=== PATIENT | female | born 1985 | race African-American/Black ===

== ENCOUNTER 2020-09-30 08:47 | Inpatient (IN) | payer OTHER ==
[~2020-09-30] VITALS: Ht 165.1 cm; Wt 74.8 kg
[2020-09-30] VITALS (423 sets, daily range): BP systolic 141–144; BP diastolic 79–102; PULSE 78–121; TEMP 98.2–98.3; O2SAT 49–100
[2020-09-30 09:57] LABS: BASO % 0.1 % (0.0-2.0); GRAN # 10.4 (1.4-6.5); GRAN % 85.4 % (42.2-75.2); HEMATOCRIT 34.6 % (37.0-47.0); HEMOGLOBIN 10.9 g/dl (12.5-16.0); LYMPH # 1.3 (1.2-3.4); LYMPH % 10.7 % (20.0-51.0); MEAN CELL VOLUME 85 fl (80.0-100.0); MEAN CORPUSCULAR HEMOGLOBIN 27 pg (27.0-31.0); MEAN CORPUSCULAR HGB CONC 32 g/dl (33.0-37.0); MEAN PLATELET VOLUME 11.1 fl (7.4-10.4); MONO # 0.4 (0.1-0.6); MONO % 3.4 % (1.7-9.3); PLATELET COUNT 321 K/mm3 (130-400); RED BLOOD COUNT 4.09 M/mm3 (4.10-5.30)
[2020-09-30 10:12] LABS: ALBUMIN 3.6 gm/dL (3.5-5.0); BILIRUBIN,TOTAL 0.5 mg/dL (0.0-1.0); C-REACTIVE PROTEIN 7.5 mg/dL (0.0-0.9); CALCIUM 8.6 mg/dL (8.4-10.2); CREATININE, serum 0.73 (0.52-1.25); POTASSIUM 4.8 mmol/L (3.4-5.0)
[2020-09-30 12:11] LABS: ARTERIAL BLD GAS O2 SATURATION 94.4 % (92-100); ARTERIAL BLD GAS TCO2 CT 26.4; ARTERIAL BLOOD GAS BASE EXCESS 1.6 (-2-2); ARTERIAL BLOOD GAS HCO3 25.2 meq/L (22-26); ARTERIAL BLOOD GAS PCO2 35.9 mmHg (35-45); ARTERIAL BLOOD GAS PO2 75.1 mmHg (80-100); ARTERIAL BLOOD GAS pH 7.47 (7.35-7.45)
[2020-09-30 12:56] LABS: MAGNESIUM 2.4 mg/dL (1.6-2.3)
[2020-09-30 13:12] LABS: TROPONIN-I 0.059 ng/mL (0.000-0.035)
[2020-09-30 13:18] LABS: INR 1.3 (0.8-3.0)
[2020-09-30 15:34] LABS: COLLECTION METHOD CLEAN CATCH
[2020-09-30 15:55] LABS: MUCOUS Present /lpf; PH 6 (5-8); SQUAMOUS EPITHELIAL None Seen /hpf; URINE APPEARANCE Hazy; URINE BACTERIA Occasional /hpf; URINE BILIRUBIN Negative (NEGATIVE); URINE BLOOD 2+ (NEGATIVE); URINE COLOR Yellow; URINE GLUCOSE Negative (NEGATIVE); URINE KETONE Negative (NEGATIVE); URINE LEUKOCYTE ESTERASE 2+ (NEGATIVE); URINE NITRATE Negative (NEGATIVE); URINE PROTEIN(semi-quant) 2+ (NEGATIVE); URINE RBC 20-50 /hpf
[2020-09-30 17:05] LABS: ARTERIAL BLD GAS O2 SATURATION 96.9 % (92-100); ARTERIAL BLD GAS TCO2 CT 26.2; ARTERIAL BLOOD GAS BASE EXCESS 0.7 (-2-2); ARTERIAL BLOOD GAS PCO2 38.6 mmHg (35-45); ARTERIAL BLOOD GAS PO2 93.3 mmHg (80-100); ARTERIAL BLOOD GAS pH 7.43 (7.35-7.45)
--- NOTE | 2020-09-30 20:00 | NUR ---
PATIENT HAS HAD MASK OFF FORREASONABLE AMOUNT OF TIME, HAVING JELLO AND H20 CAUSE OF HUNGER SATS MAINTAIN AT 90 TO 91%,
[2020-10-01] VITALS (872 sets, daily range): BP systolic 130–174; BP diastolic 90–96; PULSE 68–112; TEMP 97.7–99.1; O2SAT 46–100
--- NOTE | 2020-10-01 | NUR ---
PATIENT HAS BEEN RESTING, MASK OFF FOR WATER AND SOME MORE JELLO, SATS MAINTAINED, WARM BLANKET PROVIDED, PATIENT BACK TO RESTING
[2020-10-01 05:16] LABS: MEAN CELL VOLUME 82 fl (80.0-100.0); MEAN CORPUSCULAR HGB CONC 32 g/dl (33.0-37.0); RED BLOOD COUNT 6.51 M/mm3 (4.10-5.30); REDCELL DISTRIBUTION WIDTH-CV 14.7 % (11.5-14.5)
[2020-10-01 05:20] LABS: HEMATOCRIT 53.3 % (37.0-47.0); HEMOGLOBIN 17.1 g/dl (12.5-16.0); MEAN CORPUSCULAR HEMOGLOBIN 26 pg (27.0-31.0); PLATELET COUNT 114 K/mm3 (130-400)
[2020-10-01 05:24] LABS: ALBUMIN 2.9 gm/dL (3.5-5.0); BILIRUBIN,TOTAL 0.3 mg/dL (0.0-1.0); CALCIUM 7.6 mg/dL (8.4-10.2); CREATININE, serum 0.55 (0.52-1.25); POTASSIUM 4.3 mmol/L (3.4-5.0); TOTAL PROTEIN 7.3 gm/dL (6.4-8.2)
[2020-10-01 05:42] LABS: GRAN # 2.9 (1.4-6.5); GRAN % 86.4 % (42.2-75.2); LYMPH # 0.3 (1.2-3.4); MONO # 0.1 (0.1-0.6)
[2020-10-01 05:45] LABS: ARTERIAL BLD GAS O2 SATURATION 93.4 % (92-100); ARTERIAL BLD GAS TCO2 CT 25.7; ARTERIAL BLOOD GAS BASE EXCESS -0.2 (-2-2); ARTERIAL BLOOD GAS HCO3 24.4 meq/L (22-26); ARTERIAL BLOOD GAS PCO2 39.8 mmHg (35-45); ARTERIAL BLOOD GAS PO2 73.8 mmHg (80-100); ARTERIAL BLOOD GAS pH 7.41 (7.35-7.45)
[2020-10-01 10:35] LABS: MEAN CELL VOLUME 85 fl (80.0-100.0); MEAN CORPUSCULAR HGB CONC 32 g/dl (33.0-37.0); MEAN PLATELET VOLUME 11.7 fl (7.4-10.4); RED BLOOD COUNT 3.21 M/mm3 (4.10-5.30)
[2020-10-01 10:52] LABS: HEMATOCRIT 27.3 % (37.0-47.0); HEMOGLOBIN 8.6 g/dl (12.5-16.0); MEAN CORPUSCULAR HEMOGLOBIN 27 pg (27.0-31.0)
[2020-10-01 10:53] LABS: PLATELET COUNT 273 K/mm3 (130-400)
[2020-10-01 11:32] LABS: BAND 14 % (0-10); LYMPHOCYTE 7 % (20.0-51.0); NEUTROPHILS 75 % (42.0-75.2); PLATELET ESTIMATE NORMAL (NORMAL)
[2020-10-01 11:33] LABS: HYPOCHROMIA 2+
--- NOTE | 2020-10-01 11:33 | NUR ---
Chaplain knight for patient while standing outside of door.
--- NOTE | 2020-10-01 12:16 | NUR ---
Vancomycin Initial Dosing Pharmacy Note Ordering provider: Isael Ragland MD Indication/duration: Bacteremia/14 days LABS: eCrCl > 100 mL/min Recommendation: Loading dose: 1.5 grams Maintenance dose: 1 gram every 8 hours Trough goal: 15-20 ug/mL Pharmacy will continue to follow and adjust as needed.
--- NOTE | 2020-10-01 13:44 | NUR ---
SW attempted contact for assessment with family Teresa Shipley is reported to be the patients biological partenal brother , patient resides with him and her 4 other young children in [facility]. Patient has a mother local Ana Cristina Fuentes who reports that she does not know much about patient other than the patient places mother down for EMR contact. Will have to wait to obtain additional information from patient. Patient is reported to have 4 young children, no pcp is known, no insurance, unknown medications or RX, unknown DME use;if any, and no listed DPOA. Patient will being given resources for financial bill assistance. Will attempt to gather plan at another time.
--- NOTE | 2020-10-01 20:00 | NUR ---
PATIENT CURRENTLY ON NC AT 6 L, MAINTAINIG O2 SATS AT 95%, PATIENT REQUEST TO STAY WITH NC AND HAS BEEN IN ROOM SINGING, PATIENT DENIES DISCOMFORT
[2020-10-02] VITALS (717 sets, daily range): BP systolic 139–169; BP diastolic 80–105; PULSE 79–97; TEMP 9.8; O2SAT 34–100
--- NOTE | 2020-10-02 00:25 | NUR ---
PATIENT HAS FINISHED WITH SPONGE BATH, IS NOW BACK ON BIPAP, READIED SELF FOR A NIGHT'S SLEEP, DENIES DISCOMFORT.
[2020-10-02 05:22] LABS: BASO % 0.1 % (0.0-2.0); EOS % 0.3 % (0-4.0); GRAN # 10.6 (1.4-6.5); GRAN % 90.4 % (42.2-75.2); LYMPH # 0.7 (1.2-3.4); LYMPH % 5.9 % (20.0-51.0); MEAN CELL VOLUME 86 fl (80.0-100.0); MEAN CORPUSCULAR HGB CONC 31 g/dl (33.0-37.0); MONO # 0.3 (0.1-0.6); MONO % 2.9 % (1.7-9.3); PLATELET COUNT 278 K/mm3 (130-400); RED BLOOD COUNT 3.25 M/mm3 (4.10-5.30)
[2020-10-02 05:25] LABS: HEMATOCRIT 27.8 % (37.0-47.0); HEMOGLOBIN 8.6 g/dl (12.5-16.0); MEAN CORPUSCULAR HEMOGLOBIN 26 pg (27.0-31.0)
[2020-10-02 05:32] LABS: ALBUMIN 3.1 gm/dL (3.5-5.0); BILIRUBIN,TOTAL 0.4 mg/dL (0.0-1.0); CALCIUM 8.4 mg/dL (8.4-10.2); CREATININE, serum 0.63 (0.52-1.25); POTASSIUM 3.9 mmol/L (3.4-5.0); TOTAL PROTEIN 7.6 gm/dL (6.4-8.2)
[2020-10-02 05:41] LABS: ARTERIAL BLD GAS O2 SATURATION 87.1 % (92-100); ARTERIAL BLD GAS TCO2 CT 27.6; ARTERIAL BLOOD GAS BASE EXCESS 2.3 (-2-2); ARTERIAL BLOOD GAS HCO3 26.4 meq/L (22-26); ARTERIAL BLOOD GAS PCO2 38.8 mmHg (35-45); ARTERIAL BLOOD GAS PO2 56.1 mmHg (80-100); ARTERIAL BLOOD GAS pH 7.45 (7.35-7.45)
--- NOTE | 2020-10-02 13:56 | NUR ---
Frozen Food Department Manager collaborated with Hyacinth, Financial Counselor who advised that she would contact patient. SW will continue to follow.
[2020-10-03] VITALS (912 sets, daily range): BP systolic 124–143; BP diastolic 72–95; PULSE 72–118; TEMP 98.8–100.1; O2SAT 37–100
[2020-10-03 01:53] LABS: ARTERIAL BLD GAS O2 SATURATION 95.2 % (92-100); ARTERIAL BLD GAS TCO2 CT 24.5; ARTERIAL BLOOD GAS BASE EXCESS -0.8 (-2-2); ARTERIAL BLOOD GAS HCO3 23.4 meq/L (22-26); ARTERIAL BLOOD GAS PCO2 36.1 mmHg (35-45); ARTERIAL BLOOD GAS PO2 79.7 mmHg (80-100); ARTERIAL BLOOD GAS pH 7.43 (7.35-7.45)
[2020-10-03 05:41] LABS: ARTERIAL BLD GAS O2 SATURATION 98.4 % (92-100); ARTERIAL BLD GAS TCO2 CT 27.8; ARTERIAL BLOOD GAS BASE EXCESS 2.9 (-2-2); ARTERIAL BLOOD GAS HCO3 26.6 meq/L (22-26); ARTERIAL BLOOD GAS PCO2 37.6 mmHg (35-45); ARTERIAL BLOOD GAS pH 7.47 (7.35-7.45)
[2020-10-03 05:42] LABS: ARTERIAL BLOOD GAS PO2 134.5 mmHg (80-100)
--- NOTE | 2020-10-03 06:00 | NUR ---
RT notified this RN that patient was upset that no one had done a mental health assessment on her and PT stated that she was "really, really struggling" and was frustrated. This RN then went into PT's room to discuss this with patient. PT stated that she felt like she had not been listened to or cared about since no one asked how she was doing, mentally. Also stated that she was previously on anxiety medications but had not taken them in a very long time since she does not have insurance. PT also voiced frustration that no on come to help her when she presses her call light. To my knowledge at that point, the patient had not pressed the call light the entire night. I then asked the patient if she would let me see her call light to make sure it was working okay, PT refused and said it worked fine since someone replied to her -- but stated that she had not used it at all tonight since she didn't expect anyone to come in and help her. (This RN was working the floor the night before and recalled that her nurse was quickly and frequently in the room. Dayshift reported that PT had only used her call light once during the day and staff immediately went into the room). I listened to the patient talk about her feelings and stated understanding. Discussed potentially starting anxiety meds if it is okay with hospitalist. PT verbalized understanding and did not say much after that.
[2020-10-03 06:50] LABS: MEAN CELL VOLUME 85 fl (80.0-100.0); MEAN CORPUSCULAR HGB CONC 31 g/dl (33.0-37.0); MEAN PLATELET VOLUME 10.6 fl (7.4-10.4); PLATELET COUNT 259 K/mm3 (130-400); RED BLOOD COUNT 3.04 M/mm3 (4.10-5.30); REDCELL DISTRIBUTION WIDTH-CV 14.3 % (11.5-14.5)
[2020-10-03 06:54] LABS: HEMATOCRIT 25.9 % (37.0-47.0); HEMOGLOBIN 8.1 g/dl (12.5-16.0); MEAN CORPUSCULAR HEMOGLOBIN 27 pg (27.0-31.0)
[2020-10-03 06:56] LABS: ALBUMIN 3.1 gm/dL (3.5-5.0); BILIRUBIN,TOTAL 0.6 mg/dL (0.0-1.0); CALCIUM 8.3 mg/dL (8.4-10.2); CREATININE, serum 0.61 (0.52-1.25); POTASSIUM 3.7 mmol/L (3.4-5.0); TOTAL PROTEIN 7.6 gm/dL (6.4-8.2)
--- NOTE | 2020-10-03 08:00 | NUR ---
Shift assessment complete at this time. Plan of care reviewed at bedside with patient. Additional time taken to address any other needs or concerns. Vitals stable at this. Denies pain or any other discomforts. Bed in low position, call light within reach.
[2020-10-03 09:38] LABS: BAND 3 % (0-10); LYMPHOCYTE 8 % (20.0-51.0); NEUTROPHILS 87 % (42.0-75.2); NUCLEATED RED BLOOD CELL 1 (0-6)
[2020-10-03 09:39] LABS: HYPOCHROMIA 1+; PLATELET ESTIMATE NORMAL (NORMAL)
--- NOTE | 2020-10-03 10:54 | NUR ---
Isolation precautions discontinued per direction of Dr. Ragland.
--- NOTE | 2020-10-03 12:00 | NUR ---
Shift reassessment complete at this time. No changes from previous assessment noted. Isolation precautions discontinued per direction of Dr. Ragland.
--- NOTE | 2020-10-03 15:47 | NUR ---
Vancomycin Follow-up Pharmacy Note Current regimen: VANCOMYCIN 1 G Q8H Vancomycin trough: 10.6 Adjustments: INCREASE TO VANCOMYCIN 1.25G Q8H
--- NOTE | 2020-10-03 16:00 | NUR ---
Shift reassessment complete at this time. No changes from previous assessment noted. Vitals stable at this time. Pt denies pain or any other discomforts. Bed in low position, call light within reach, will continue to monitor.
--- NOTE | 2020-10-03 21:10 | NUR ---
After activity SpO2 reading 30-60%, pt in no distress, tachypenic, however denies feeling short of breath - SpO2 probe on ear and finger revealed same reading. Ear lobes and fingers cool to touch with 3sec cap-refill, radial pulse 1-2+. SpO2 probe applied to forehead, which is normal/warm to touch, SpO2 reading 100% with good pleth/waveform. Pt states "I have been told I don't have real good circulation". Pt states anxiety is "much better after the Xanax". Lilly,RT in room during abovementioned
[2020-10-04] VITALS (848 sets, daily range): BP systolic 115–132; BP diastolic 63–84; PULSE 108–121; TEMP 98.3–101.2; O2SAT 46–100
--- NOTE | 2020-10-04 04:57 | NUR ---
0450: HR at rest 140's. Reassessment completed: pt in no distress, denies shortness of breath despite continued tachypnea, peripheral pulses 1-2+, extremities cool to touch with 3second cap-refill, no edema present in extremities, axillary temp 101.2. 0452: SOFIA Florentino notified - instructed to call [facility] 0455: MD Jerrod at [facility] notified of abovementioned and informed of difference in peripheral SpO2 probe vs. forehead SpO2 readings - MD states to rely on forehead SpO2 reading. MD instructed to treat fever with tylenol and administer PRN anti-anxiety PO med. No other orders recieved 0458: SOFIA Florentino updated
--- NOTE | 2020-10-04 06:16 | NUR ---
Critical ABG results reported to ROMI by RT. Lilly Physician assessing pt by room video camera. Physician requesting right sided ABG since previous 2 were on left radial and brachial. BiPAP requested by provider, pt refusing, education provided, pt continues to refuse
[2020-10-04 06:21] LABS: BASO % 0.1 % (0.0-2.0); EOS % 0.3 % (0-4.0); GRAN % 91.6 % (42.2-75.2); LYMPH # 0.6 (1.2-3.4); LYMPH % 4.7 % (20.0-51.0); MEAN CELL VOLUME 86 fl (80.0-100.0); MEAN CORPUSCULAR HGB CONC 31 g/dl (33.0-37.0); MEAN PLATELET VOLUME 11.5 fl (7.4-10.4); MONO # 0.4 (0.1-0.6); MONO % 2.8 % (1.7-9.3); PLATELET COUNT 296 K/mm3 (130-400); RED BLOOD COUNT 3.11 M/mm3 (4.10-5.30); REDCELL DISTRIBUTION WIDTH-CV 14.5 % (11.5-14.5)
[2020-10-04 06:23] LABS: HEMATOCRIT 26.8 % (37.0-47.0); HEMOGLOBIN 8.4 g/dl (12.5-16.0); MEAN CORPUSCULAR HEMOGLOBIN 27 pg (27.0-31.0)
[2020-10-04 06:26] LABS: BILIRUBIN,TOTAL 0.6 mg/dL (0.0-1.0); CALCIUM 8.3 mg/dL (8.4-10.2); CREATININE, serum 0.7 (0.52-1.25); POTASSIUM 3.7 mmol/L (3.4-5.0); TOTAL PROTEIN 7.4 gm/dL (6.4-8.2)
[2020-10-04 06:39] LABS: ARTERIAL BLD GAS TCO2 CT 25.2; ARTERIAL BLOOD GAS BASE EXCESS 0.5 (-2-2); ARTERIAL BLOOD GAS HCO3 24.1 meq/L (22-26); ARTERIAL BLOOD GAS PCO2 34.5 mmHg (35-45); ARTERIAL BLOOD GAS pH 7.46 (7.35-7.45)
[2020-10-04 06:40] LABS: ARTERIAL BLOOD GAS PO2 34.7 mmHg (80-100)
[2020-10-04 06:41] LABS: ARTERIAL BLD GAS TCO2 CT 24.9; ARTERIAL BLOOD GAS BASE EXCESS 0.8 (-2-2); ARTERIAL BLOOD GAS HCO3 23.9 meq/L (22-26); ARTERIAL BLOOD GAS PCO2 32.4 mmHg (35-45); ARTERIAL BLOOD GAS pH 7.49 (7.35-7.45)
[2020-10-04 06:42] LABS: ARTERIAL BLOOD GAS PO2 32.5 mmHg (80-100)
--- NOTE | 2020-10-04 08:00 | NUR ---
Shift assessment complete at this time. Plan of care reviewed at bedside with patient. Additional time taken to address any other needs or concerns. Denies pain at this time. Vitals stable. Bed in low position, call light within reach.
--- NOTE | 2020-10-04 12:00 | NUR ---
Shift reassessment complete at this time. No changes from previous assessments noted. Vitals stable at this time. Denies pain or any other discomfort. Bed in low position, call light within reach.
--- NOTE | 2020-10-04 16:00 | NUR ---
Shift reassessment complete at this time. No changes from previous assessment noted. Vitals stable at this time. Pt denies pain or any other discomforts. Bed in low position, call light witin reach.
[2020-10-04 19:32] LABS: CLOSTRIDIUM DIFF A/B NEG; CLOSTRIDIUM DIFF A/B INTERP No C.diff present
[2020-10-05] VITALS (263 sets, daily range): BP systolic 115–152; BP diastolic 68–99; PULSE 93–125; TEMP 97.4–99.1; O2SAT 42–100
--- NOTE | 2020-10-05 06:00 | NUR ---
PT slept for a majority of the night with no complaints besides dry mouth from being NPO. Mouth swabs offered.
--- NOTE | 2020-10-05 07:20 | NUR ---
RECEIVED REPORT FROM NITISH CALDERA. PT ON 5L VIA NC. VSS. CALL LIGHT WITHIN REACH. NOTED PT USING BSC. STEADY GAIT NOTED.
[2020-10-05 07:27] LABS: BASO % 0.1 % (0.0-2.0); EOS # 0.1 (0.0-0.7); EOS % 0.6 % (0-4.0); GRAN % 89.6 % (42.2-75.2); LYMPH # 0.9 (1.2-3.4); LYMPH % 6.2 % (20.0-51.0); MEAN CELL VOLUME 85 fl (80.0-100.0); MEAN CORPUSCULAR HGB CONC 31 g/dl (33.0-37.0); MEAN PLATELET VOLUME 11.6 fl (7.4-10.4); MONO # 0.4 (0.1-0.6); MONO % 2.8 % (1.7-9.3); PLATELET COUNT 315 K/mm3 (130-400); RED BLOOD COUNT 3.34 M/mm3 (4.10-5.30); REDCELL DISTRIBUTION WIDTH-CV 14.6 % (11.5-14.5)
[2020-10-05 07:28] LABS: ALBUMIN 3.1 gm/dL (3.5-5.0); BILIRUBIN,TOTAL 0.5 mg/dL (0.0-1.0); CALCIUM 8.6 mg/dL (8.4-10.2); CREATININE, serum 1.14 (0.52-1.25); POTASSIUM 3.7 mmol/L (3.4-5.0); TOTAL PROTEIN 7.6 gm/dL (6.4-8.2)
[2020-10-05 07:30] LABS: HEMATOCRIT 28.3 % (37.0-47.0); HEMOGLOBIN 8.9 g/dl (12.5-16.0); MEAN CORPUSCULAR HEMOGLOBIN 27 pg (27.0-31.0)
--- NOTE | 2020-10-05 08:20 | NUR ---
DR HOLLIS AT BEDSIDE FOR ASSESSMENT.
--- NOTE | 2020-10-05 10:22 | NUR ---
SPOKE WITH DR THOMPSON ABOUT ANNA. PHYSICIAN STATES WILL TALK TO NITISH HARRINGTON AND DR RODRIGUEZ AND HAVE THEM CALL. NITISH HARRINGTON CALLS AND STATES DR FERNANDEZ WILL PERFORM ANNA TODAY AND FOR RN TO CONTACT US AND ANESTHESIA TO COORDINATE TIME. DR EDMONDS MADE AWARE OF POC AT THIS TIME.
--- NOTE | 2020-10-05 13:58 | NUR ---
The patient has orders to transfer to the medical floor.
--- NOTE | 2020-10-05 16:22 | NUR ---
REPORT CALLED TO NITISH VILLA. ALL PERSONAL BELONGINGS SENT WITH PT.
--- NOTE | 2020-10-05 17:30 | NUR ---
Patient arrived to the floor at this time. She was able to transfer from bed to chair independently and did well other than her SOB on exersion. She became uncomfortable when oxygen was briefly off to switch from wall to the portable but recovered. No complaints of pain or discomfort at this time. Lung sounds are audible and coarsem especially in the bases. Heart rate was tachy but normal heart sounds. Radial and distal pulses were all in tact. She states that she feels okay she just becomes weak and SOB with movement. Will continue to monitor. No other needs. Call light is in reach.
--- NOTE | 2020-10-05 19:11 | NUR ---
Resting in bed. Assessment complete. Lung bases coarse. Heart sounds normal-tachy. Pulses present throughout. No edema noted. PICC to right upper purple port unable to flush. Red port flushing and blood return. Will notify next shift to notify NITISH Schuler. Reports 6/10 headache. Given PRN tylenol. Also reporting anxiety. Given xanax. Denies other needs. Call light in reach.
[2020-10-05 23:20] LABS: C-ANCA 15 U/mL (0-99)
--- NOTE | 2020-10-06 00:38 | NUR ---
Resting in bed. Denies needs. Denies pain. Call light in reach.
[2020-10-06 00:40] VITALS: BP 125/72; PULSE 94; TEMP 98
--- NOTE | 2020-10-06 02:52 | NUR ---
Resting in bed. Denies needs. Call light in reach.
[2020-10-06 03:48] VITALS: BP 119/66; PULSE 98; TEMP 97.8
--- NOTE | 2020-10-06 05:25 | NUR ---
Patient had tylenol throughout night for headache. Otherwise uneventful night. Resting in bed this AM. Call light in reach.
[2020-10-06 06:35] LABS: MEAN CELL VOLUME 84 fl (80.0-100.0); MEAN CORPUSCULAR HGB CONC 32 g/dl (33.0-37.0); MEAN PLATELET VOLUME 11.8 fl (7.4-10.4); PLATELET COUNT 312 K/mm3 (130-400); RED BLOOD COUNT 3.21 M/mm3 (4.10-5.30); REDCELL DISTRIBUTION WIDTH-CV 14.6 % (11.5-14.5)
[2020-10-06 06:40] LABS: HEMATOCRIT 26.9 % (37.0-47.0); HEMOGLOBIN 8.6 g/dl (12.5-16.0); MEAN CORPUSCULAR HEMOGLOBIN 27 pg (27.0-31.0)
[2020-10-06 06:52] LABS: CALCIUM 8.5 mg/dL (8.4-10.2); CREATININE, serum 1.32 (0.52-1.25); MAGNESIUM 2.4 mg/dL (1.6-2.3); POTASSIUM 3.6 mmol/L (3.4-5.0)
--- NOTE | 2020-10-06 07:13 | NUR ---
Report given to NITISH Salvador
[2020-10-06 07:26] LABS: BAND 6 % (0-10); LYMPHOCYTE 2 % (20.0-51.0); NEUTROPHILS 88 % (42.0-75.2); PLATELET ESTIMATE NORMAL (NORMAL)
[2020-10-06 07:35] VITALS: BP 143/83; PULSE 97; TEMP 98.7
--- NOTE | 2020-10-06 09:10 | NUR ---
Assessment complete. Patient sitting up in bed talking on the phone at this time. No complaints of pain at this time. She does state "I think my body is working in reverse and that my cough and stuff is gonna get a little wprse before it gets better". I think she feels that her body is begining to fight the pna. Her lungs were coarse but audible. PICC intact but purple line would not flush, will notify Harini BERRIOS. No other complaints at this time. Will contionue to monitor. Call light is in reach.
[2020-10-06 10:42] LABS: ANGIOTENSIN CONVERTING ENZYME 43 U/L (16 - 85)
[2020-10-06 11:59] VITALS: BP 131/83; PULSE 95; TEMP 97.5
--- NOTE | 2020-10-06 13:15 | NUR ---
Contacted by Dr. Gaona and reported PICC tip in right atrium. reviewed chest x ray. PICC dressing change done with sterile technique insertion site cleansed with chloraprep x 1, catheter pulled out 2 cm to 1 cm marking on catheter. skin prep, stat lock, and chlorhexidine impregnated disk applied. no signs or symptoms of IV complications noted. no concerns voiced. flushed purple port with 10ml normal saline with good blood return noted.
--- NOTE | 2020-10-06 16:36 | NUR ---
Kettle Operator Head contacted Hyacinth Financial Counselor who advised she would complete Financial Assistance Application with patient tomorrow. RADHA collaborated with LEONIE Garrido who advised patient will need outpatient IV antibiotics. Recommendation is currently for Ancef, three times daily. RADHA collaborated with Ambar Butler RN who advised times would be 6am/2pm/10pm. SW met with patient about outpatient IV antibiotics. Patient states she has a vehicle and strong family support. Patient states three times daily is not ideal but that she would make it work as she has to be there for her kids. Patient states that either her employer, [employer] would have to make it work or she will apply for short term disability. SW also discussed setting up primary care. Patient does not have insurance at this time and would be agreeable to having an appointment set up at the [facility]. Patient advised she did not have a good experience at the [place] office. RADHA collaborated with BEATRICE Trent who advised patient would benefit from outpatient PT. RADHA will continue to follow.
[2020-10-06 16:47] VITALS: BP 127/71; PULSE 98; TEMP 97.8
--- NOTE | 2020-10-06 17:27 | NUR ---
PAtient has had an uneventful shift. No complaints of pain or discomfort. PICC line purple port works well now that CELIO Schuler adjusted her placement. Patient has had minimal needs through the shift. Continuing to monitor. Call light is in reach.
[2020-10-06 19:02] VITALS: BP 124/63; PULSE 102; TEMP 97.6
--- NOTE | 2020-10-06 20:00 | NUR ---
Report received, assumed care for cook night. Assessment complete. VS stable. A&Ox3. Denies pain/nausea. Short of breath with activity/talking. O2@5L/HFNC. Upper lung lobes CTA/bases bilat diminished. Tele showing SR. PICC to right upper arm flushes without difficulty. Plan of care discussed for this shift to include HS meds/antibiotics and PRN medications as needed. Verbalizes understanding/denies questions/concerns. Call light in reach. Will monitor.
--- NOTE | 2020-10-06 22:00 | NUR ---
Called requesting tylenol/xanax. States she is feeling very anxious about being here and what is going on with her body. This nurse sat with patient for approx 1 hour to talk. 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 States she has accepted the fact she wont be home for [place] and understands that her health is more important. Discussed face timing with family to help ease anxiety. Xanax given per dr order as well as tylenol for generalized aches. Call light in reach. Will monitor.
[2020-10-07] VITALS (7 sets, daily range): BP systolic 115–168; BP diastolic 62–83; PULSE 93–111; TEMP 97.8–100
--- NOTE | 2020-10-07 05:19 | NUR ---
Rested well after receiving tylenol/xanax early in the shift. VS remained stable. O2@5L/NC. PICC to right upper arm flushes without difficulty-good blood return. Tele continued to show SR. Denies questions/concerns. Call light in reach. Will monitor.
--- NOTE | 2020-10-07 06:00 | NUR ---
Provided sputum culture container with instruction on use. Instructed to notify staff once collected. Verbalizes understanding/denies questions/concerns. Call light in reach. Will monitor.
[2020-10-07 06:38] LABS: MEAN CELL VOLUME 86 fl (80.0-100.0); MEAN CORPUSCULAR HGB CONC 31 g/dl (33.0-37.0); MEAN PLATELET VOLUME 11.7 fl (7.4-10.4); PLATELET COUNT 289 K/mm3 (130-400); RED BLOOD COUNT 3.26 M/mm3 (4.10-5.30); REDCELL DISTRIBUTION WIDTH-CV 14.6 % (11.5-14.5)
[2020-10-07 06:46] LABS: CALCIUM 8.7 mg/dL (8.4-10.2); CREATININE, serum 1.16 (0.52-1.25); POTASSIUM 3.4 mmol/L (3.4-5.0)
[2020-10-07 06:52] LABS: HEMATOCRIT 27.9 % (37.0-47.0); HEMOGLOBIN 8.7 g/dl (12.5-16.0); MEAN CORPUSCULAR HEMOGLOBIN 27 pg (27.0-31.0)
--- NOTE | 2020-10-07 08:10 | NUR ---
Pt assessment completed and charted, medications administered per dec. Pt A&O, sitting in bed, on 7LHFNC, increased from 5L, pt c/o "being winded" and after giving sputum sample pt felt "very SOB". Pt denies any N/V/D, has been afebrile. UL bilaterally clear, LL bilaterally diminished, HR tachy, resp shallow/tachypneic. No edema noted. BENITA PICC in place, both ports flush well with good blood return. No other issues noted.
--- NOTE | 2020-10-07 11:22 | NUR ---
First visit from the plate preparer. No needs right now.
--- NOTE | 2020-10-07 12:38 | NUR ---
PICC line caps changed, no issues, documented in intervention. Pt requesting tylenol for back pain. Administered prn per dec.
--- NOTE | 2020-10-07 17:03 | NUR ---
Quarry Supervisor obtained signature from patient on Financial Assistance Application and returned it to Hyacinth, Financial Counselor. RADHA also scheduled patient an appointment at [facility] in [place] for 10/29/19@ 1100. RADHA faxed records to Maria Isabel at [facility]. RADHA will continue to follow.
--- NOTE | 2020-10-07 20:30 | NUR ---
Called with c/o headache and increased anxiety. Requesting tylenol/xanax. Given per dr order. Call light in reach. Will monitor.
--- NOTE | 2020-10-08 01:46 | NUR ---
Patient alert and oriented. Patient laying in bed and resting with eyes closed upon enter the room. Patient awake upon calling her name. Patient c/o moderate back pain and seems anxious. PRN Tylenol and Xanax given per DEC. Scheduled meds given as well. Patient is currently on oxygen 5L via NC. Patient denies chest pain, SOB or dyspnea. PICC IV site clean/dry/intact. Unable to flush red lumen with NS. Flushed purple lumen with 10ml NS without difficulty. Call light within reach. Patient denies needs at this time.
[2020-10-08 05:19] VITALS: BP 148/65; PULSE 126; TEMP 99.5
--- NOTE | 2020-10-08 06:19 | NUR ---
Patient sitting up in bed and appears anxious. PRN Xanax given at 05:46 am. PRN Tylenol given at 05:46 am for low grade Temp of 99.5 F. Ice water offered. Patient denies further needs at this time.
[2020-10-08 07:08] LABS: BASO % 0.2 % (0.0-2.0); EOS # 0.1 (0.0-0.7); EOS % 1.1 % (0-4.0); GRAN % 88.1 % (42.2-75.2); LYMPH # 0.8 (1.2-3.4); LYMPH % 6.7 % (20.0-51.0); MEAN CELL VOLUME 85 fl (80.0-100.0); MEAN CORPUSCULAR HGB CONC 32 g/dl (33.0-37.0); MEAN PLATELET VOLUME 11.9 fl (7.4-10.4); MONO # 0.4 (0.1-0.6); MONO % 3.2 % (1.7-9.3); PLATELET COUNT 264 K/mm3 (130-400); RED BLOOD COUNT 3.22 M/mm3 (4.10-5.30); REDCELL DISTRIBUTION WIDTH-CV 14.9 % (11.5-14.5)
[2020-10-08 07:11] LABS: HEMATOCRIT 27.5 % (37.0-47.0); HEMOGLOBIN 8.7 g/dl (12.5-16.0); MEAN CORPUSCULAR HEMOGLOBIN 27 pg (27.0-31.0)
[2020-10-08 07:23] LABS: CALCIUM 8.4 mg/dL (8.4-10.2); CREATININE, serum 1.02 (0.52-1.25); POTASSIUM 3.5 mmol/L (3.4-5.0)
[2020-10-08 08:13] VITALS: BP 133/78; PULSE 115; TEMP 98.6
--- NOTE | 2020-10-08 09:33 | NUR ---
Pt assessment completed and charted. This nurse in w/ another pt and RT notified this pt was satting in 70s on 5L HFNC and pt had to be turned up to 15L HFNC to reach 90% sats. This nurse in w/ patient, doesn't appear to be in distress, denies chest pain, dizziness, N/V/D, numbnes or tingling. Pt stated she needed to "clear her sinuses and blow her nose". O2 removed to allow, pt produced small amount of mucus from nose, bloody, pt states its always like that and she has to blow her nose "in the morning" and "middle of the day, all the time". O2 placed back on, decreased to 10L HFNC, pt satting at 90%, O2 sats decrease if O2 is decreased below 10L. Dr. Diaz informed, CT scan of chest and ABGs given verbally, placed. CT and RT notified. No further needs at this time. Rt sd LS diminished, Lt sd lung pagan CTA, HR tachy, normal rhythm. BS active. Pulses strong bilaterally. Pt has BENITA PICC in place, both ports flush well w/ blood return. No other needs at this time.
--- NOTE | 2020-10-08 11:26 | NUR ---
RT notified this nurse that she was in pt room to obtain ABG, pt was laying in bed, O2 on floor, pt satting in 40s initially, O2 placed back on, pt drops quickly off O2, O2 increased to 15L, pt sats increasing very slowly, only reaching 70%, pt appears lethargic but still A&O. This nurse notified Dr. Diaz, pt to be placed on bipap, ABGs being obtained at this time. Dr. Diaz stated she would talk to cardiology.
[2020-10-08 11:37] LABS: ARTERIAL BLD GAS TCO2 CT 23.2; ARTERIAL BLOOD GAS HCO3 22.1 meq/L (22-26); ARTERIAL BLOOD GAS PCO2 35.2 mmHg (35-45); ARTERIAL BLOOD GAS pH 7.42 (7.35-7.45)
[2020-10-08 11:38] LABS: ARTERIAL BLOOD GAS PO2 44.7 mmHg (80-100)
[2020-10-08 12:43] VITALS: BP 149/77; PULSE 114; TEMP 98.8
--- NOTE | 2020-10-08 13:56 | NUR ---
Pt taken off bipap, placed on 10L HFNC, assisted to bathroom with therapy, pt sats dropped to 40%. Pt back to bed, O2 sats slowly increased. Pt placed back on bipap. Dr. Natarajan in at same time to discuss POC. Pt insistent on eating, discussed importance of getting sats up first. Called RT for airvo. House called this nurse to notify of lab results for pneumocystis. Hospitalist, Pulm, and ID physicians all notified. POC discussed w/ patient who verbalized understanding. Pt requesting xanax, administered per dec. No further needs at this time.
[2020-10-08 15:07] LABS: HIV 1/2 Antibodies Preliminary Positive; HIV-1p24 Antigen Preliminary Positive
--- NOTE | 2020-10-08 16:14 | NUR ---
Freight Separator faxed initial information about patient to [place] [facility]. RADHA also collaborated with NITISH Butler at [facility] about patient. If patient to discharge over the weekend, Henrique TALBERT will be available Monday. If late Monday or on Monday, RADHA to collaborate with [facility] to set up ER infusions and leave all orders for [facility] in [facility] on the desk. Patient has increased oxygen needs and is currently on bipap.
[2020-10-08 16:25] VITALS: BP 102/72; PULSE 102; TEMP 98.4
--- NOTE | 2020-10-08 18:09 | NUR ---
Pt has remained on airvo, tolerating well, satting well. Pt denies needs at this time. Pt has been afebrile today.
[2020-10-08 21:00] VITALS: BP 130/77; PULSE 110; TEMP 97.8
[2020-10-08 21:52] LABS: HEPATITIS B CORE AB,TOTAL Negative (())
[2020-10-08 21:53] LABS: HEPATITIS B SURFACE ANTIGEN Negative (Negative)
[2020-10-08 22:01] LABS: HEPATITIS C VIRUS ANTIBODY Negative (Negative)
[2020-10-08 23:30] VITALS: BP 135/77; PULSE 90; TEMP 96.9
--- NOTE | 2020-10-09 00:25 | NUR ---
Patient laying in bed and watching TV upon enter the room. Patient A/O x4. Patient denies any pain or discomfort. Denies SOB/dyspnea while at rest. No headache, dizziness, or N/V. Breathing even and unlabored. SPO2 100% on Airvo 60 L and 80% FIO2. Scheduled meds given per order. Right upper arm PICC line has no s/s of complications. Flushed both lumen with NS without difficulty. Call light within reach. Patient denies any needs at this time.
[2020-10-09 02:51] LABS: HIV 1 and 2 ANTIBODY SCRN-SO REACTIVE (Negative)
[2020-10-09 04:04] VITALS: BP 129/73; PULSE 98; TEMP 97.2
[2020-10-09 05:12] LABS: MEAN CELL VOLUME 85 fl (80.0-100.0); MEAN CORPUSCULAR HGB CONC 32 g/dl (33.0-37.0); MEAN PLATELET VOLUME 11.8 fl (7.4-10.4); PLATELET COUNT 222 K/mm3 (130-400); RED BLOOD COUNT 2.91 M/mm3 (4.10-5.30); REDCELL DISTRIBUTION WIDTH-CV 15.1 % (11.5-14.5)
[2020-10-09 05:13] LABS: HEMATOCRIT 24.7 % (37.0-47.0); HEMOGLOBIN 7.9 g/dl (12.5-16.0); MEAN CORPUSCULAR HEMOGLOBIN 27 pg (27.0-31.0)
[2020-10-09 05:23] LABS: BILIRUBIN,TOTAL 0.3 mg/dL (0.0-1.0); CALCIUM 8.3 mg/dL (8.4-10.2); CREATININE, serum 0.98 (0.52-1.25); POTASSIUM 3.2 mmol/L (3.4-5.0); TOTAL PROTEIN 7.1 gm/dL (6.4-8.2)
--- NOTE | 2020-10-09 05:30 | NUR ---
Patient denies any SOB/dyspnea or pain/discomfort throughout the shift. SPO2 100% on Arivo 60L and 75% FIO2 at 0400 am. No acute respiratory distress noted throughout the shift. Call light within reach. Patient denies any needs at this time.
[2020-10-09 05:40] LABS: ANISOCYTOSIS 1+; BAND 2 % (0-10); EOSINOPHIL 2 % (0-4); HYPOCHROMIA 2+; LYMPHOCYTE 2 % (20.0-51.0); NEUTROPHILS 94 % (42.0-75.2); PLATELET ESTIMATE NORMAL (NORMAL)
[2020-10-09 08:01] VITALS: BP 122/64; PULSE 105; TEMP 97.5
--- NOTE | 2020-10-09 09:56 | NUR ---
Pt assessment completed and charted, medications administered per dec. Pt A&O, indpendent in room, on 60L 75% airvo, satting low 90s. Pt was sleeping upon entry. Pt denies pain, dizziness, N/V/D, chest pain. C/o some SOB when ambulating. Pt currently using bedside commode. Pt has BENITA PICC in place, both ports flush well w/ blood return. LS cta, HRRR occasionally ST. Pulses strong bilaterally, BS active. No further needs expressed at this time.
[2020-10-09 11:37] LABS: CD4 CD8 Ratio 0.11 (1.00-2.90); CD4 Helper T Cell 7.9 % (29.0-59.0); CD8 Suppressor T Cells 69.2 % (18.0-36.0); Lymphocyte,Absolute 750 mm3 (1500-4000)
[2020-10-09 12:36] VITALS: BP 116/61; PULSE 101; TEMP 98.6
[2020-10-09 16:47] VITALS: BP 133/75; PULSE 102; TEMP 98
[2020-10-09 21:16] VITALS: BP 113/71; PULSE 103; TEMP 98.5
--- NOTE | 2020-10-09 23:51 | NUR ---
Patient laying in bed upon enter the room. Patient A/O x4. Patient reports not feeling well today. Patient c/o moderate aching back pain. PRN Tylenol given for back pain and PRN Xanax given per patient's request. Patient denies SOB/ dyspnea at this time. SPO2 93% on Airvo 60L and 75% FIO2. Scheduled meds given per DEC. Patient gets up to use bedside commode around 9 pm and c/o SOB. SPO2 82% at this time. RT came in and adjusted Airvo to 60L and 80%. Call light within reach. Patient denies further needs at this time.
[2020-10-10 00:02] VITALS: BP 117/65; PULSE 85; TEMP 98.2
[2020-10-10 05:40] VITALS: BP 130/72; PULSE 77; TEMP 97.4
--- NOTE | 2020-10-10 05:41 | NUR ---
Patient c/o mild back pain and seems anxious. PRN Tylenol and Xanax given at 05:36 am per patient request. Will continue to monitor.
[2020-10-10 07:18] LABS: MEAN CELL VOLUME 85 fl (80.0-100.0); MEAN CORPUSCULAR HGB CONC 31 g/dl (33.0-37.0); PLATELET COUNT 222 K/mm3 (130-400); RED BLOOD COUNT 3.01 M/mm3 (4.10-5.30); REDCELL DISTRIBUTION WIDTH-CV 15.1 % (11.5-14.5)
[2020-10-10 07:28] LABS: HEMATOCRIT 25.5 % (37.0-47.0); HEMOGLOBIN 7.8 g/dl (12.5-16.0); MEAN CORPUSCULAR HEMOGLOBIN 26 pg (27.0-31.0)
[2020-10-10 07:34] LABS: BILIRUBIN,TOTAL 0.2 mg/dL (0.0-1.0); CALCIUM 8.5 mg/dL (8.4-10.2); CREATININE, serum 0.95 (0.52-1.25); POTASSIUM 4.1 mmol/L (3.4-5.0); TOTAL PROTEIN 7.2 gm/dL (6.4-8.2)
[2020-10-10 08:20] VITALS: BP 121/70; PULSE 92; TEMP 98.3
[2020-10-10 09:54] LABS: BAND 3 % (0-10); LYMPHOCYTE 3 % (20.0-51.0); NEUTROPHILS 94 % (42.0-75.2)
[2020-10-10 09:55] LABS: HYPOCHROMIA 1+; OVALOCYTES 1+; PLATELET ESTIMATE NORMAL (NORMAL)
--- NOTE | 2020-10-10 10:59 | NUR ---
Pt assessment completed and charted, medications administered per dec. Pt A&O, laying in bed, sleeping upon entry. Pt has BENITA PICC in place, both ports flush w/o difficulty, good blood return. Pt denies dizziness, N/V/D, does have some loose stools. Pt has oral thrush present, receiving diflucan. Pt on airvo 60L 80%, increased from 75% last night, satting ok. Pt able to tolerate minimal breakfast. Pt denies any pain at this time.
[2020-10-10 12:34] VITALS: BP 107/62; PULSE 94; TEMP 98.3
--- NOTE | 2020-10-10 14:49 | NUR ---
Pt doing better today, appears better, breathing is slightly improved from yesterday, pt using bedside commode. No other concerns at this time.
[2020-10-10 16:00] VITALS: BP 110/55; PULSE 91; TEMP 97.8
--- NOTE | 2020-10-10 20:28 | NUR ---
Resting in bed. Assessment complete. Right lower lobe diminished otherwise clear. On airvo at 60l and 82% fiO2. Heart sounds normal. Bowels active x4. Pulses present throughout. No edema noted. PICC to right upper flushed without complications. Reports 6/10 pain at this time with anxiety. Provided with PRN xanax and tylenol. Denies other needs. CAll light in reach.
[2020-10-10 21:07] VITALS: BP 106/66; PULSE 95; TEMP 98.3
--- NOTE | 2020-10-11 00:06 | NUR ---
Resting in bed. Denies pain. Denies needs. Call light in reach.
[2020-10-11 00:49] VITALS: BP 134/77; PULSE 81; TEMP 97.3
--- NOTE | 2020-10-11 04:23 | NUR ---
Restin in bed. Denies needs. Call light in reach.
[2020-10-11 04:46] VITALS: BP 113/75; PULSE 76; TEMP 97.2
--- NOTE | 2020-10-11 06:32 | NUR ---
Patient had uneventful night. Required x1 dose of tylenol and x1 of xanax. Resting in bed this AM. Call light in reach.
--- NOTE | 2020-10-11 07:07 | NUR ---
Report given to NITISH Cardenas
[2020-10-11 07:09] LABS: MEAN CELL VOLUME 86 fl (80.0-100.0); MEAN CORPUSCULAR HGB CONC 31 g/dl (33.0-37.0); MEAN PLATELET VOLUME 11.8 fl (7.4-10.4); PLATELET COUNT 270 K/mm3 (130-400); RED BLOOD COUNT 3.11 M/mm3 (4.10-5.30); REDCELL DISTRIBUTION WIDTH-CV 15.2 % (11.5-14.5)
[2020-10-11 07:21] LABS: HEMATOCRIT 26.6 % (37.0-47.0); HEMOGLOBIN 8.1 g/dl (12.5-16.0); MEAN CORPUSCULAR HEMOGLOBIN 26 pg (27.0-31.0)
[2020-10-11 07:24] LABS: CALCIUM 8.9 mg/dL (8.4-10.2); CREATININE, serum 0.91 (0.52-1.25); POTASSIUM 4.8 mmol/L (3.4-5.0)
[2020-10-11 07:58] VITALS: BP 110/65; PULSE 98; TEMP 97.7
[2020-10-11 08:56] LABS: HYPOCHROMIA 1+; LYMPHOCYTE 5 % (20.0-51.0); NEUTROPHILS 95 % (42.0-75.2); OVALOCYTES 1+; PLATELET ESTIMATE NORMAL (NORMAL)
--- NOTE | 2020-10-11 11:16 | NUR ---
Pt assessment completed and charted, medications administered per dec. Pt laying in bed, A&O, independent in room, on 60L 75% airvo, per RT, Dr. Natarajan gave verbal order to titrate her airvo down as tolerated. Pt satting well. Pt denies SOB, N/V/D, chest pain, dizziness. Pt denies loose stools at this time. Tolerating some breakfast ok. BENITA PICC in place, both ports flush w/ good blood return. LS cta, HRRR. Pt appears a little better today. Pt has been afebrile. No other concerns at this time.
[2020-10-11 11:51] VITALS: BP 119/62; PULSE 95; TEMP 97.7
--- NOTE | 2020-10-11 12:29 | NUR ---
Pt requesting ice, provided. Pt states she is feeling "woozy". VSS, pt satting well on airvo which was decreased to 62% FiO2 at 60L. Pt denies N/V. Denies need for zofran. Encouraged to call for other concerns.
--- NOTE | 2020-10-11 17:46 | NUR ---
Pt requesting tylenol, having some aches, prn administered per dec.
[2020-10-11 17:48] VITALS: BP 127/79; PULSE 99; TEMP 98.3
--- NOTE | 2020-10-11 21:30 | NUR ---
Assumed care for second shift supervisor at 1900. Denies pain/nausea. Requesting some melatonin for bedtime. Lungs CTAB. Airvo @60L/62%FIO2. States the new antibiotic has made her feel terrible. States she has no energy at all and just wants to sleep. PICC to right upper arm flushes without difficulty. Plan of care discussed for this shift shift to include HS meds/antibiotics/calling for questions/concerns. Verbalizes understanding/denies questions/concerns. Call light in reach. Will monitor.
[2020-10-11 21:47] VITALS: BP 135/80; PULSE 95; TEMP 98.3
[2020-10-12 03:10] VITALS: BP 122/74; PULSE 112; TEMP 97.4
--- NOTE | 2020-10-12 06:17 | NUR ---
Rested off and on this shift. States the melatonin made her mind race more. Denied pain/nausea. Short of breath at rest. Airvo continued at 60L/62% with O2 sats in the mid 90s. PICC to right upper arm flushes without difficutly/good blood return. Denies needs. Call light in reach. Will monitor.
--- NOTE | 2020-10-12 06:55 | NUR ---
Report received from NITISH Sawant. Pt lying in bed, denies needs at this time. Will continue to monitor.
[2020-10-12 07:29] LABS: MEAN CELL VOLUME 85 fl (80.0-100.0); MEAN CORPUSCULAR HGB CONC 32 g/dl (33.0-37.0); MEAN PLATELET VOLUME 11.7 fl (7.4-10.4); PLATELET COUNT 267 K/mm3 (130-400); RED BLOOD COUNT 3.03 M/mm3 (4.10-5.30); REDCELL DISTRIBUTION WIDTH-CV 15.2 % (11.5-14.5)
[2020-10-12 07:42] LABS: ALBUMIN 3.3 gm/dL (3.5-5.0); BILIRUBIN,TOTAL 0.2 mg/dL (0.0-1.0); CALCIUM 9.2 mg/dL (8.4-10.2); POTASSIUM 5.1 mmol/L (3.4-5.0); TOTAL PROTEIN 7.6 gm/dL (6.4-8.2)
[2020-10-12 07:46] LABS: HEMATOCRIT 25.6 % (37.0-47.0); HEMOGLOBIN 8.1 g/dl (12.5-16.0); MEAN CORPUSCULAR HEMOGLOBIN 27 pg (27.0-31.0)
[2020-10-12 08:00] VITALS: BP 124/57; PULSE 90; TEMP 98.1
[2020-10-12 08:48] LABS: BAND 4 % (0-10); LYMPHOCYTE 3 % (20.0-51.0); MYELOCYTE 1 % (0-0); NEUTROPHILS 89 % (42.0-75.2); PLATELET ESTIMATE NORMAL (NORMAL)
--- NOTE | 2020-10-12 09:30 | NUR ---
Shift assessment complete. Pt sitting up in bed watching videos on phone. Airvo in place at 60L 62% with sats 97%. IV abx infusing. Right UA PICC w/o S/S complication. Denies pain or other concerns at this time. Heart RRR with occasional episodes of tachycardia, lungs CTA, A&Ox4. Will continue to monitor.
[2020-10-12 09:48] LABS: Lymphocyte SEE PCI
--- NOTE | 2020-10-12 10:55 | NUR ---
Pt called stating the airvo was out of water. This RN notified RT and went to pt room. Pt sitting up in bed, stated nose was burning. Notified pt that RT was on way to change out the bag. This RN stepped out of room to grab dynamap, upon reentering room, pt found to have airvo off with sats between 27-40%. This RN helped pt place airvo back on with sats rising to 50%. Heart rate increased to 120s and pt beginning to breath heavy. RT walked into room as this RN dialing cat call. Sats deepika to 80s after fluid bag replaced and pt agreed to place airvo all the way in nares. After about a minute, sats increased into mid-90s and remained at 94-95%, heart rate decreased to 80s, and pt began breathing slower. Extra fluid bag placed in room and pt educated not to remove airvo.
[2020-10-12 12:00] VITALS: BP 123/64; PULSE 96; TEMP 98
--- NOTE | 2020-10-12 14:10 | NUR ---
Initial visit; Patient thanked Oracle Technical Developer for coming to see her, listening and saying a prayer. Oracle Technical Developer will follow up.
[2020-10-12 15:45] VITALS: BP 134/83; PULSE 91; TEMP 98.1
--- NOTE | 2020-10-12 16:39 | NUR ---
Fats And Oils Loader collaborated with Hyacinth, Financial Counselor about Medicaid. Hyacinth advised patient may now qualify and she will assist patient with application tomorrow. RADHA was provided contact information for Jia (ph#[phone]) at [facility] who can assist with resources for those who have tested positive for HIV/AIDS. RADHA will follow up with Jia about resources available to patient.
--- NOTE | 2020-10-12 18:32 | NUR ---
Pt remains stable on 60L O2 airvo at 61%. Desats to mid to high 80s when up to commode, remains in mid 90s when resting in bed. Reports poor appetite. Brought pt chicken broth and crackers. IV abx administered per orders.
--- NOTE | 2020-10-12 20:00 | NUR ---
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 Assessment complete. VS stable. A&Ox3-drowsy
[2020-10-12 20:44] VITALS: BP 117/73; PULSE 91; TEMP 98.6
[2020-10-12 23:42] VITALS: BP 125/67; PULSE 109; TEMP 98.2
[2020-10-13 03:23] VITALS: BP 112/72; PULSE 91; TEMP 97.3
[2020-10-13 06:30] LABS: MEAN CELL VOLUME 84 fl (80.0-100.0); MEAN CORPUSCULAR HGB CONC 31 g/dl (33.0-37.0); MEAN PLATELET VOLUME 11.4 fl (7.4-10.4); PLATELET COUNT 249 K/mm3 (130-400); RED BLOOD COUNT 2.96 M/mm3 (4.10-5.30); REDCELL DISTRIBUTION WIDTH-CV 15.3 % (11.5-14.5)
[2020-10-13 06:38] LABS: HEMATOCRIT 24.9 % (37.0-47.0); HEMOGLOBIN 7.8 g/dl (12.5-16.0); MEAN CORPUSCULAR HEMOGLOBIN 26 pg (27.0-31.0)
[2020-10-13 06:45] LABS: ALBUMIN 3.2 gm/dL (3.5-5.0); BILIRUBIN,TOTAL 0.2 mg/dL (0.0-1.0); CALCIUM 9.1 mg/dL (8.4-10.2); MAGNESIUM 2.2 mg/dL (1.6-2.3); TOTAL PROTEIN 7.5 gm/dL (6.4-8.2)
[2020-10-13 06:47] LABS: POTASSIUM 5.8 mmol/L (3.4-5.0)
[2020-10-13 07:40] LABS: ANISOCYTOSIS 1+; BAND 1 % (0-10); LYMPHOCYTE 6 % (20.0-51.0); NEUTROPHILS 91 % (42.0-75.2); PLATELET ESTIMATE NORMAL (NORMAL)
[2020-10-13 07:41] LABS: HYPOCHROMIA 2+
[2020-10-13 08:30] VITALS: BP 126/80; PULSE 111; TEMP 97.5
--- NOTE | 2020-10-13 10:12 | NUR ---
PATIENT ABLE TO WEAN FROM 60LPM TO 55 LPM, SPO2 92%.
[2020-10-13 13:13] VITALS: BP 114/64; PULSE 103; TEMP 98.5
--- NOTE | 2020-10-13 15:20 | NUR ---
DIGITAL CONTENT COORDINATOR notified this nurse that pt O2 sats were 84%, RT notified, pt airvo increased, pt on 60L 60%. Deep breathing encouraged.
[2020-10-13 16:00] VITALS: BP 126/70; PULSE 105; TEMP 98.1
--- NOTE | 2020-10-13 17:00 | NUR ---
Manager Contract contacted Jia at [facility] and left a message. RADHA Heaton obtained signature on releases of information and last page of Medicaid application then faxed this to Hyacinth, Financial Counselor. RADHA will continue to follow.
[2020-10-13 18:23] LABS: CALCIUM 7.1 mg/dL (8.4-10.2); CREATININE, serum 0.75 (0.52-1.25); POTASSIUM 4.3 mmol/L (3.4-5.0)
--- NOTE | 2020-10-13 18:58 | NUR ---
Pt had BMP drawn at 1730, critical results for glucose @ 882, Cl @ 81, Na @ 112. No change in mental status, resp status. Pt A&O. BS checked w/ glucometer, resulted in 167. Results called to physician and PA, verbal order to have redraw, straight stick ordered. Results pending. Physicians aware.
[2020-10-13 19:05] LABS: CREATININE, serum 0.98 (0.52-1.25); POTASSIUM 5.4 mmol/L (3.4-5.0)
[2020-10-13 19:54] VITALS: BP 125/77; PULSE 111; TEMP 98.5
[2020-10-13 23:18] VITALS: BP 130/71; PULSE 99; TEMP 97.8
[2020-10-14 05:17] VITALS: BP 136/76; PULSE 96; TEMP 98
[2020-10-14 06:53] LABS: TOXOPLASMA AB, IGM <3.0 AU/mL (0.0-7.9); TOXOPLASMA IGM VALUE Negative (Negative)
[2020-10-14 07:09] LABS: MEAN CELL VOLUME 84 fl (80.0-100.0); MEAN CORPUSCULAR HGB CONC 31 g/dl (33.0-37.0); MEAN PLATELET VOLUME 11.1 fl (7.4-10.4); PLATELET COUNT 235 K/mm3 (130-400); RED BLOOD COUNT 2.94 M/mm3 (4.10-5.30); REDCELL DISTRIBUTION WIDTH-CV 15.3 % (11.5-14.5)
[2020-10-14 07:13] LABS: HEMATOCRIT 24.7 % (37.0-47.0); HEMOGLOBIN 7.7 g/dl (12.5-16.0); MEAN CORPUSCULAR HEMOGLOBIN 26 pg (27.0-31.0)
[2020-10-14 07:18] LABS: ALBUMIN 3.2 gm/dL (3.5-5.0); BILIRUBIN,TOTAL 0.1 mg/dL (0.0-1.0); CALCIUM 8.7 mg/dL (8.4-10.2); CREATININE, serum 0.92 (0.52-1.25); POTASSIUM 5.3 mmol/L (3.4-5.0); TOTAL PROTEIN 7.5 gm/dL (6.4-8.2)
[2020-10-14 07:35] VITALS: BP 109/67; PULSE 88; TEMP 98.1
[2020-10-14 07:53] LABS: LYMPHOCYTE 2 % (20.0-51.0); NEUTROPHILS 97 % (42.0-75.2); PLATELET ESTIMATE NORMAL (NORMAL)
[2020-10-14 08:11] LABS: TOXOPLASMA AB, IGG <3.0 IU/mL (0.0-7.1); TOXOPLASMA IGG VALUE Negative (Negative)
--- NOTE | 2020-10-14 10:14 | NUR ---
Pt sleeping upon entry, easily awakened, no C/O pain at thius time. Shift assessments complete, left Pt call light in reach, bed in lowest position.
[2020-10-14 10:40] VITALS: BP 135/77; PULSE 93; TEMP 98.2
--- NOTE | 2020-10-14 11:29 | NUR ---
Checked Pt, sleeping at this time, disconnected IV, complete.
--- NOTE | 2020-10-14 15:50 | NUR ---
Staff Submarine Warfare Officer collaborated with Hyacinth, Financial Counselor who advised Medicaid Application has been submitted for patient. RADHA contacted Raquel at [facility] and faxed referral. Raquel advised they cannot accept Medicaid pending but could consider once Medicaid is approved. RADHA also contacted Jia Staff Submarine Warfare Officer at [facility] to discuss continuity of care for patient. Jia advised that she assists with outpatient care and acts as a medical laboratory technicians once patient would be discharged from the hospital. Jia states they help connect patient to outpatient Infectious Disease physician and can assist with transportation and even provide support at appointments. Jia states she will assist patient in applying for services that pay for HIV services that insurance will not cover. RADHA updated Jia on discharge planning for patient. RADHA will continue to follow.
[2020-10-14 16:21] VITALS: BP 116/56; PULSE 108; TEMP 98.6
--- NOTE | 2020-10-14 18:34 | NUR ---
Pt resting in the room, no C/O pain today, Pt slept this morning. VS have remained stable.
[2020-10-14 20:05] VITALS: BP 118/62; PULSE 106; TEMP 98.2
[2020-10-15] VITALS: BP 107/68; PULSE 79; TEMP 97.2
[2020-10-15 05:09] VITALS: BP 122/83; PULSE 75; TEMP 97.8
[2020-10-15 06:53] LABS: MEAN CELL VOLUME 85 fl (80.0-100.0); MEAN CORPUSCULAR HGB CONC 31 g/dl (33.0-37.0); MEAN PLATELET VOLUME 11.9 fl (7.4-10.4); PLATELET COUNT 248 K/mm3 (130-400); RED BLOOD COUNT 3.03 M/mm3 (4.10-5.30); REDCELL DISTRIBUTION WIDTH-CV 15.5 % (11.5-14.5)
[2020-10-15 07:02] LABS: ALBUMIN 3.2 gm/dL (3.5-5.0); BILIRUBIN,TOTAL 0.2 mg/dL (0.0-1.0); CALCIUM 8.8 mg/dL (8.4-10.2); CREATININE, serum 0.91 (0.52-1.25); POTASSIUM 4.5 mmol/L (3.4-5.0); TOTAL PROTEIN 7.6 gm/dL (6.4-8.2)
[2020-10-15 07:04] LABS: HEMATOCRIT 25.7 % (37.0-47.0); MEAN CORPUSCULAR HEMOGLOBIN 26 pg (27.0-31.0)
[2020-10-15 07:45] LABS: BAND 3 % (0-10); LYMPHOCYTE 6 % (20.0-51.0); METAMYELOCYTE 1 % (0-0); NEUTROPHILS 89 % (42.0-75.2)
[2020-10-15 07:46] LABS: PLATELET ESTIMATE NORMAL (NORMAL)
[2020-10-15 08:39] VITALS: BP 129/68; PULSE 104; TEMP 97.8
[2020-10-15 09:21] LABS: TOXOPLASMA AB, IGG SEE PCI; TOXOPLASMA IGG INTERPRETATION SEE PCI
--- NOTE | 2020-10-15 09:38 | NUR ---
Pt awake and alert upon entry, in bed, no C/O pain at this time. Shift assessments complete, left Pt call light in reach, bed in lowest position.
[2020-10-15 12:39] LABS: HIV 1 RNA IU 648894 (<=39); HIV 1 RNA LOG 5.81 Log/mL (<=1.59)
[2020-10-15 13:15] VITALS: BP 138/56; PULSE 108; TEMP 97.8
--- NOTE | 2020-10-15 13:21 | NUR ---
INCREASED FIO2 TO 80%, SP02 93%, THIS RT CALLED TO ROOM BY PATIENT SOB. SAP02 WAS 85% ON 70%FIO2.
--- NOTE | 2020-10-15 14:22 | NUR ---
Slip Bridge Operator followed up with Hyacinth, Financial Counselor about patient. Medicaid is still pending and no timeline for approval at this time. Hyacinth advised she attempted to follow up with [facility] but was not able to get through. SW will continue to follow.
[2020-10-15 15:30] VITALS: BP 113/60; PULSE 118; TEMP 98.7
--- NOTE | 2020-10-15 17:00 | NUR ---
Pt discharged to home, dicussed discharge packet with Pt. Escorted Pt to entrance, Pt left with family via private transportationj.
--- NOTE | 2020-10-15 18:28 | NUR ---
Pt resting in the room, had some C/O pain this afternoon and tylenol was administered for relief. no other issues noted. VS have remained stable.
[2020-10-15 20:24] VITALS: BP 121/68; PULSE 97; TEMP 98.4
--- NOTE | 2020-10-15 22:00 | NUR ---
Patient assessed at this time. Alert and oriented x 4, and able to make needs known. Denies having pain and discomfort at this time. PICC to RUE. Denies SOB and dyspnea. LS CTA in upper lobes, diminished in lower. Respirations even and unlabored. Airvo in place. Capillary refill less than 3 seconds. Non-tenting skin turgor. BSAx4. Abdomen soft and non-tender. No edema. Voices no questions, needs, or concens at this time. Resting in bed with call light within reach.
[2020-10-16] VITALS (58 sets, daily range): BP systolic 118–143; BP diastolic 56–90; PULSE 101–120; TEMP 98–98.8; O2SAT 99–100
--- NOTE | 2020-10-16 07:44 | NUR ---
Patient has been resting in recliner with call light within reach. Continues on Airvo. Denies having pain and discomfort. Received IV antibiotics per orders. Voices no questions, needs, or concerns at this time. Resting in bed with call light within reach.
--- NOTE | 2020-10-16 08:24 | NUR ---
Pt sitting in recliner napping upon entry, no C/O pain at this time. Shift assessments complete. left pt in recliner, call light in reach.
[2020-10-16 12:31] LABS: MEAN CELL VOLUME 84 fl (80.0-100.0); MEAN CORPUSCULAR HGB CONC 32 g/dl (33.0-37.0); MEAN PLATELET VOLUME 11.7 fl (7.4-10.4); PLATELET COUNT 245 K/mm3 (130-400); RED BLOOD COUNT 3.03 M/mm3 (4.10-5.30); REDCELL DISTRIBUTION WIDTH-CV 15.9 % (11.5-14.5)
[2020-10-16 12:32] LABS: ARTERIAL BLD GAS TCO2 CT 22.3; ARTERIAL BLOOD GAS BASE EXCESS -3.3 (-2-2); ARTERIAL BLOOD GAS HCO3 21.2 meq/L (22-26); ARTERIAL BLOOD GAS PCO2 35.6 mmHg (35-45); ARTERIAL BLOOD GAS PO2 66.7 mmHg (80-100); ARTERIAL BLOOD GAS pH 7.39 (7.35-7.45)
[2020-10-16 12:32] LABS: HEMATOCRIT 25.3 % (37.0-47.0); MEAN CORPUSCULAR HEMOGLOBIN 26 pg (27.0-31.0)
[2020-10-16 12:57] LABS: ALBUMIN 3.4 gm/dL (3.5-5.0); BILIRUBIN,TOTAL 0.2 mg/dL (0.0-1.0); CALCIUM 9.2 mg/dL (8.4-10.2); CREATININE, serum 0.83 (0.52-1.25); POTASSIUM 4.5 mmol/L (3.4-5.0)
[2020-10-16 13:41] LABS: ANISOCYTOSIS 1+; BAND 2 % (0-10); LYMPHOCYTE 4 % (20.0-51.0); NEUTROPHILS 93 % (42.0-75.2); PLATELET ESTIMATE NORMAL (NORMAL)
[2020-10-16 13:42] LABS: HYPOCHROMIA 1+
[2020-10-16 19:59] LABS: ARTERIAL BLD GAS O2 SATURATION 89.4 % (92-100); ARTERIAL BLD GAS TCO2 CT 22.3; ARTERIAL BLOOD GAS HCO3 21.3 meq/L (22-26); ARTERIAL BLOOD GAS PCO2 34.7 mmHg (35-45); ARTERIAL BLOOD GAS PO2 61.3 mmHg (80-100); ARTERIAL BLOOD GAS pH 7.41 (7.35-7.45)
--- NOTE | 2020-10-16 21:15 | NUR ---
Received phone report from Eloina from medical floor.
--- NOTE | 2020-10-16 21:50 | NUR ---
Pt arrived via wheelchair with staff assist on Bipap. Belongings arrived to pt room just a few moments earlier. Pt agreeable to transfer with standby assist from wheelchair to bed. Gait steady with short distance. Requested bedside commode for restroom needs. Denies any pain or SOA at this time.
--- NOTE | 2020-10-16 22:00 | NUR ---
Patient's IV completed at approximately 1930. When going into room to turn off, RT was in with patient. At that time, patient's respirations were in the 30s and labored. Complained of shortness of breath and anxiety. SPO2 89-90% on Airvo at 60L at 90%. Called and updated Mishel. New order to obtain ABG. Ok to give Seroquel at HS now. Given and RT completed ABG. Julissa in with patient to assess and talk about BIPAP and intubation. After ABG results were back, order received for BIPAP. Julissa also wanted patient to go down to ICU to be monitored more closely. Patient aware and ok with this. Report given to ICU nurse at approximately 2130. Called RT to assist with transfer with BIPAP. Taken to ICU and care taken over by ICU at 2200.
[2020-10-17] VITALS (1247 sets, daily range): BP systolic 11–195; BP diastolic 57–101; PULSE 80–148; TEMP 97.7–98.7; O2SAT 37–100
--- NOTE | 2020-10-17 00:40 | NUR ---
This nurse has been in with pt since arrival to the unit. Pt expressed feelings on not being able to have any support personal come up to the hospital and the feeling of going through "all of this alone". Pt has remained on Bipap. Has been steady with getting up to bedside commode although reported to this nurse how it is getting increasingly harder to have the energy to get out of bed in addition to eating. At one point pt was noted to be coughing, when further assessed pt reported putting a starburst in mouth while having Bipap on. Education provided to pt on the Bipap and how aspiration is a big risk due to the extra inhalation pressure and would advise no longer attempting to put anything in mouth while in use. Pt demonstrated that agreement was made. Purewick was discussed with pt as an option due to increasing difficulty getting out of bed. Pt denies wanting to try at this time. Request was made to this nurse from pt that mother be contacted and updated due to her having "not received a call since getting here", this nurse understood that to be in reference to hospitalization.
[2020-10-17 06:21] LABS: MEAN CELL VOLUME 84 fl (80.0-100.0); MEAN CORPUSCULAR HGB CONC 31 g/dl (33.0-37.0); MEAN PLATELET VOLUME 10.4 fl (7.4-10.4); PLATELET COUNT 191 K/mm3 (130-400); RED BLOOD COUNT 2.88 M/mm3 (4.10-5.30); REDCELL DISTRIBUTION WIDTH-CV 15.8 % (11.5-14.5)
[2020-10-17 06:22] LABS: HEMATOCRIT 24.2 % (37.0-47.0); HEMOGLOBIN 7.6 g/dl (12.5-16.0); MEAN CORPUSCULAR HEMOGLOBIN 26 pg (27.0-31.0)
[2020-10-17 06:27] LABS: CALCIUM 9.1 mg/dL (8.4-10.2); CREATININE, serum 0.72 (0.52-1.25); POTASSIUM 4.8 mmol/L (3.4-5.0)
[2020-10-17 07:05] LABS: LYMPHOCYTE 3 % (20.0-51.0); NEUTROPHILS 97 % (42.0-75.2); PLATELET ESTIMATE NORMAL (NORMAL)
--- NOTE | 2020-10-17 07:08 | NUR ---
PLACED PT ON AIRVO 60LPM 84% SPO2 95%
--- NOTE | 2020-10-17 07:30 | NUR ---
Patient placed on airvo from bipap to eat breakfast and take meds.
--- NOTE | 2020-10-17 08:30 | NUR ---
PAtient called and when RN walked into room patient was breathing in the 50's and satting in the 80's. She stated she couldnt breathe and wanted to be placed back on bipap. was called and notified and asked if he wanted an ABG and cxray ordered on her because one was not ordered this morning yet. We got an ABG and cxray and patient was placed on bipap.
--- NOTE | 2020-10-17 09:00 | NUR ---
ABG was resulted and had worsened. notified. Will keep on bipap and draw another ABG at noon.
[2020-10-17 09:12] LABS: ARTERIAL BLD GAS O2 SATURATION 82.5 % (92-100); ARTERIAL BLD GAS TCO2 CT 25.6; ARTERIAL BLOOD GAS BASE EXCESS -3.3 (-2-2); ARTERIAL BLOOD GAS HCO3 23.9 meq/L (22-26); ARTERIAL BLOOD GAS PO2 57.9 mmHg (80-100); ARTERIAL BLOOD GAS pH 7.26 (7.35-7.45)
--- NOTE | 2020-10-17 10:30 | NUR ---
at bedside. He was notified of this morning events and he wanted to place patient back on airvo because she was satting 98-100% on bipap. Patient was still breathing 40 a minute and not restful. While he was in there RN switched pt to airvo and her 02 saturation dropped. RN replaced pulse oximetry to a new finger and it read that the patient was satting in the 50's with a perfect pleath. was not convinced it was real. So pulse ox was placed on patients forhead, which was diaphoretic, and waveform read 100% with a perfect pleath. He was pleased with that and said to keep it on the forehead.
--- NOTE | 2020-10-17 11:00 | NUR ---
Called to notify him of orders. still wants an ABG at noon. Notified RTElodia.
--- NOTE | 2020-10-17 12:30 | NUR ---
ABG obtained and was resulted. ABG was even worse than the 0900 one. We switched her pulse ox to her finger and it read 35 percent with a perfect waveform and the pulse also matched the HR. Natalia, RT, also verified with her portable pulse ox and hers also read 35%. Patient is also very fatigued, no longer restless with heavy and glazed eyes. was notified of ABG and condition of patient and he went to bedside. He decided it was now time to intubate. He said to consult anesthesia for intubation so RN paged anesthesia and notfied charge nurse of plan.
--- NOTE | 2020-10-17 13:20 | NUR ---
RN called mother of patient, Ana Cristina, to update her on this mornings events and that we will be intubating patient soon. Mother had no questions and will be called again once patient is intubated and stabilized.
--- NOTE | 2020-10-17 13:30 | NUR ---
Anesthesia at bedside along with RR, RT, and charge nurse. Everything is ready for intubation. Time out performed. Patient was sedated and paralyzed and TIPPLE OPERATOR intubated patient at 1334. Verified with breath sounds and a cxray immediately after.
[2020-10-17 14:09] LABS: ARTERIAL BLD GAS O2 SATURATION 47.1 % (92-100); ARTERIAL BLD GAS TCO2 CT 25.3; ARTERIAL BLOOD GAS BASE EXCESS -4.7 (-2-2); ARTERIAL BLOOD GAS HCO3 23.5 meq/L (22-26); ARTERIAL BLOOD GAS PCO2 58.8 mmHg (35-45); ARTERIAL BLOOD GAS PO2 32.4 mmHg (80-100); ARTERIAL BLOOD GAS pH 7.22 (7.35-7.45)
--- NOTE | 2020-10-17 15:30 | NUR ---
Patients mother called asking to bring patients children to come visit her. Ananya was called to ask for permission since visitors are restricted in the ICU at this time. Ananya said that was okay considering the circumstances. Mother was called back and notified that they could come visit.
--- NOTE | 2020-10-17 15:47 | NUR ---
Patient has been sinus tachycardiac since intubation but heart rate now is 140-150's consistently and is not going down. was notified and his response was "Well its sinus, theres nothing I can do about it"
--- NOTE | 2020-10-17 15:48 | NUR ---
Called Ana Cristina, patients mother back. RN updated her on how intubation went and current status of patient. No doctor has called the mother to update her yet today. Also told mother about possible transfer to [facility].
--- NOTE | 2020-10-17 16:00 | NUR ---
another ABG was drawn and resulted. It has worsened since intubation. adjusted vent settings and verbally gave an order to start a bicarb gtt at 75ml/hr.
--- NOTE | 2020-10-17 16:00 | NUR ---
at bedside. He called Ana Cristina, patients mother to update her. It was also mentioned again that her HR has been ST 140-150's and was sitting near by. ordered IV metoprolol, agreed on that treatment.
[2020-10-17 16:05] LABS: ARTERIAL BLD GAS O2 SATURATION 96.9 % (92-100); ARTERIAL BLD GAS TCO2 CT 21.3; ARTERIAL BLOOD GAS HCO3 19.5 meq/L (22-26); ARTERIAL BLOOD GAS PCO2 57.1 mmHg (35-45); ARTERIAL BLOOD GAS PO2 115.9 mmHg (80-100)
[2020-10-17 16:06] LABS: ARTERIAL BLOOD GAS pH 7.15 (7.35-7.45)
--- NOTE | 2020-10-17 16:21 | NUR ---
Called joaquina to speak to doctor about ant further recommendations for treatment. He was told of everything done up to this point. He said there was nothing else to really do and that the prognosis probably is not good.
--- NOTE | 2020-10-17 18:43 | NUR ---
Patients mother and children are here at bedside to visit with patient. RN went over all the treatment thats currently being done and explained what was what that is attached to patient. Rn stepped outside to give family some privacy and said to walk out if they have any questions. [facility] and just asked to be notified when we here back from [facility].
--- NOTE | 2020-10-17 20:00 | NUR ---
PATIENT OPENS EYE UPON VOICE STIMULATION FROM STAFF, PATIENT BITING ON TUBE, MOVING HEAD FROM SIDE TO SIDE, COUGHING, MEDS ADMINISTERED
--- NOTE | 2020-10-17 20:00 | NUR ---
FROM 1953 TO 2039 PATIENT WAS AWAKE OPENING EYES, OVERRIDING VENT, COUGHING, MOVING HEAD
[2020-10-17 21:10] LABS: ARTERIAL BLD GAS O2 SATURATION 97.6 % (92-100); ARTERIAL BLD GAS TCO2 CT 25.6; ARTERIAL BLOOD GAS BASE EXCESS -3.3 (-2-2); ARTERIAL BLOOD GAS HCO3 23.9 meq/L (22-26); ARTERIAL BLOOD GAS PCO2 54.7 mmHg (35-45); ARTERIAL BLOOD GAS PO2 109.9 mmHg (80-100); ARTERIAL BLOOD GAS pH 7.26 (7.35-7.45)
--- NOTE | 2020-10-17 23:36 | NUR ---
PATIENT'S B/P BECOMING SOFT, SYSTOLIC BELOW 90, PATIENT MORE DIFFICULT TO AWAKEN THERFORE DECREASING MEDS,
[2020-10-18] VITALS (1095 sets, daily range): BP systolic 101–160; BP diastolic 48–89; PULSE 99–141; TEMP 98.3–99.4; O2SAT 38–100
--- NOTE | 2020-10-18 00:53 | NUR ---
iNCREASE DOSES BACK TO PROPFOL 40 MCQ/KG/MIN AND FENTANYL 125 MCQ/HR CAUSE PATIENT BECAME INCREASING AGITATED
--- NOTE | 2020-10-18 02:41 | NUR ---
AT THIS TIME PATIENT MAITAINS B/P AT 90 OR HIGHER SYSTOLIC, OR MAP OF 65
[2020-10-18 05:00] LABS: ARTERIAL BLD GAS O2 SATURATION 97.3 % (92-100); ARTERIAL BLOOD GAS BASE EXCESS 0.2 (-2-2); ARTERIAL BLOOD GAS HCO3 26.4 meq/L (22-26); ARTERIAL BLOOD GAS PCO2 51.2 mmHg (35-45); ARTERIAL BLOOD GAS PO2 108.5 mmHg (80-100); ARTERIAL BLOOD GAS pH 7.33 (7.35-7.45)
[2020-10-18 05:14] LABS: MEAN CELL VOLUME 84 fl (80.0-100.0); MEAN CORPUSCULAR HGB CONC 32 g/dl (33.0-37.0); MEAN PLATELET VOLUME 11.7 fl (7.4-10.4); PLATELET COUNT 146 K/mm3 (130-400); RED BLOOD COUNT 2.36 M/mm3 (4.10-5.30); REDCELL DISTRIBUTION WIDTH-CV 15.7 % (11.5-14.5)
[2020-10-18 05:21] LABS: HEMATOCRIT 19.7 % (37.0-47.0); MEAN CORPUSCULAR HEMOGLOBIN 27 pg (27.0-31.0)
[2020-10-18 05:24] LABS: ALBUMIN 2.8 gm/dL (3.5-5.0); BILIRUBIN,TOTAL 0.2 mg/dL (0.0-1.0); CALCIUM 8.3 mg/dL (8.4-10.2); CREATININE, serum 1.04 (0.52-1.25); HEMOGLOBIN 6.3 g/dl (12.5-16.0); POTASSIUM 4.5 mmol/L (3.4-5.0); TOTAL PROTEIN 6.7 gm/dL (6.4-8.2)
[2020-10-18 05:38] LABS: ANISOCYTOSIS 1+; BAND 3 % (0-10); HYPOCHROMIA 2+; LYMPHOCYTE 3 % (20.0-51.0); NEUTROPHILS 93 % (42.0-75.2); PLATELET ESTIMATE NORMAL (NORMAL)
[2020-10-18 13:04] LABS: HEMATOCRIT 24.5 % (37.0-47.0); HEMOGLOBIN 7.8 g/dl (12.5-16.0)
--- NOTE | 2020-10-18 16:50 | NUR ---
pot lining supervisor came around to notify that contacted in [facility] about transferring patient and that they acepted her and have an ICU bed available. Bed will be available sometime tonight but no for sure time.
--- NOTE | 2020-10-18 17:00 | NUR ---
Ana Cristina, patients mother, was called and updated on POC regarding transfer to [facility]. She gave verbal consent over the phone which was verified with another RN, Lis.Rowan
--- NOTE | 2020-10-18 20:00 | NUR ---
Patient drowsy but arouses to speech; not following commands at this time. VS stable. Will continue to monitor.
--- NOTE | 2020-10-18 23:50 | NUR ---
Discussed discontinuing Bicarb drip due to am AGB results. Instucted by Dr. Ko to obtain another ABG and will determine if Bicarb drip needs to continue.
[2020-10-19] VITALS (660 sets, daily range): BP systolic 106–132; BP diastolic 61–74; PULSE 98–120; TEMP 98.1–100.2; O2SAT 75–100
--- NOTE | 2020-10-19 | NUR ---
Patient awakens easily, opens eyes and is able to squeeze hands upon command. Right hand jewelry sales associate stronger than the left. Will continue to monitor.
[2020-10-19 00:21] LABS: ARTERIAL BLD GAS O2 SATURATION 97.1 % (92-100); ARTERIAL BLOOD GAS BASE EXCESS 4.2 (-2-2); ARTERIAL BLOOD GAS HCO3 30.3 meq/L (22-26); ARTERIAL BLOOD GAS PCO2 55.8 mmHg (35-45); ARTERIAL BLOOD GAS pH 7.35 (7.35-7.45)
[2020-10-19 05:22] LABS: ARTERIAL BLD GAS O2 SATURATION 96.8 % (92-100); ARTERIAL BLD GAS TCO2 CT 32.5; ARTERIAL BLOOD GAS BASE EXCESS 4.2 (-2-2); ARTERIAL BLOOD GAS HCO3 30.7 meq/L (22-26); ARTERIAL BLOOD GAS PCO2 58.5 mmHg (35-45); ARTERIAL BLOOD GAS PO2 103.4 mmHg (80-100); ARTERIAL BLOOD GAS pH 7.34 (7.35-7.45)
--- NOTE | 2020-10-19 05:28 | NUR ---
PT DOES NOT QUALIFY FOR WEAN TRIAL DUE TO SETTINGS WELL NOT BEING INTUBATED FOR MORE THAN 24 HOURS. PT IS ON DOCUMENTED SETTINGS SONAL WELL WITH NO DISTRESS NOTED AT THIS TIME
[2020-10-19 06:13] LABS: MEAN CELL VOLUME 82 fl (80.0-100.0); MEAN CORPUSCULAR HGB CONC 33 g/dl (33.0-37.0); MEAN PLATELET VOLUME 11.4 fl (7.4-10.4); PLATELET COUNT 143 K/mm3 (130-400); RED BLOOD COUNT 2.79 M/mm3 (4.10-5.30); REDCELL DISTRIBUTION WIDTH-CV 15.7 % (11.5-14.5)
[2020-10-19 06:16] LABS: HEMOGLOBIN 7.5 g/dl (12.5-16.0); MEAN CORPUSCULAR HEMOGLOBIN 27 pg (27.0-31.0)
[2020-10-19 06:24] LABS: ALBUMIN 2.9 gm/dL (3.5-5.0); BILIRUBIN,TOTAL 0.2 mg/dL (0.0-1.0); CALCIUM 8.5 mg/dL (8.4-10.2); CREATININE, serum 0.94 (0.52-1.25); MAGNESIUM 2.2 mg/dL (1.6-2.3); POTASSIUM 4.6 mmol/L (3.4-5.0)
--- NOTE | 2020-10-19 06:38 | NUR ---
Critical chloride called to Dr. Gooden from [facility].
--- NOTE | 2020-10-19 07:20 | NUR ---
RECEIVED REPORT FROM NITISH SOARES. PT RESTING EASILY ON CURRENT VENT SETTINGS: TV 300, PEE 12, RR 30, FIO2 90%. FC PATENT AND DRAINING TO GRAVITY. NOTED OGT TO LIS AT 70CM WITH GREEN DRAINAGE NOTED. VSS. MAIL CLERK IN PLACE. ART LINE TO LT RADIAL NOTED WITH GOOD WAVEFORM.
[2020-10-19 07:52] LABS: BAND 2 % (0-10); EOSINOPHIL 1 % (0-4); LYMPHOCYTE 2 % (20.0-51.0); NEUTROPHILS 95 % (42.0-75.2); PLATELET ESTIMATE NORMAL (NORMAL)
[2020-10-19 07:53] LABS: ANISOCYTOSIS 1+; HYPOCHROMIA 1+
[2020-10-19 07:54] LABS: OVALOCYTES 1+
--- NOTE | 2020-10-19 08:03 | NUR ---
Sedation vacation not performed at this time. Patient eyes are open while resting in bed and follows commands.
--- NOTE | 2020-10-19 08:16 | NUR ---
Bicarb drip discontinued due to elvated HCO3 on ABG per Dr. Ko.
--- NOTE | 2020-10-19 10:00 | NUR ---
DR HOLLIS WAS AT BEDIDE DECREASING FIO2 TO 80%. WITHIN 5 MINS, PT STARTED SITTING UP AND TRYING TO COUGH AND BECAME RESTLESS. NOTED POX TO DECREASE TO 79%. X2RN AT BEDSIDE, SUCTION ETT AND CHECK LINES, MONTIORED PT TILL SHE STABLZED AND WAS ABLE TO SETTLE BACK DOWN.
--- NOTE | 2020-10-19 13:40 | NUR ---
TF INITIATED PER ORDERS AT 15ML/HR
--- NOTE | 2020-10-19 13:55 | NUR ---
PT'S MOM UPDATED ON PT TRANSFERING SOON TO [facility] AND WILL BE AT [facility] BED 2 THERE. CELLPHONE AND GRAINING OPERATOR WILL BE SENT WITH PT. ALL OTHER BELONGINGS SENT HOME WITH MOM.
--- NOTE | 2020-10-19 15:05 | NUR ---
PT LEFT AT THIS TIME AND CARE TRASNFERRED TO [facility]. ALL BELONGINGS SENT WITH PT.
--- NOTE | 2020-10-19 15:23 | NUR ---
REPORT CALLED TO NITISH SIMON AT [facility].
== END 2020-10-19 15:05 | disposition critical access hospital (66) | DRG 974 ==
LOC: COL.ER 08:47 → MEDICAL 11:15 → ICU 11:15 → MEDICAL 10-05 18:14 → ICU 10-16 21:33
PROVIDERS: Emergency Medicine; Hospitalist; Internal Medicine Critical Care Medicine; Internal Medicine Infectious Disease; Internal Medicine Pulmonary Disease; Nurse Practitioner Family; Nurse Practitioner Primary Care; Physician Assistant; ADMIT Internal Medicine
PROC: 5A1945Z Respiratory Ventilation, 24-96 Consecutive Hours (ICD-10-PCS; principal; 2020-10-17)
PROC: 0BH17EZ Insertion of Endotracheal Airway into Trachea, Via Natural or Artificial Opening (ICD-10-PCS; 2020-10-17)
DX: B20 Human immunodeficiency virus [HIV] disease (principal); J96.01 Acute respiratory failure with hypoxia; B59 Pneumocystosis; I21.A1 Myocardial infarction type 2; I38 Endocarditis, valve unspecified; B37.0 Candidal stomatitis; E87.1 Hypo-osmolality and hyponatremia; G72.81 Critical illness myopathy; F17.210 Nicotine dependence, cigarettes, uncomplicated; F41.9 Anxiety disorder, unspecified; F31.9 Bipolar disorder, unspecified; G47.00 Insomnia, unspecified; E87.5 Hyperkalemia; I27.20 Pulmonary hypertension, unspecified; D64.9 Anemia, unspecified; Z20.828 Contact with and (suspected) exposure to other viral communicable diseases
CPT/HCPCS: 99232-AI; 99233-AI; 99239; C1751; C1892; J0360; J0690; J0696; J1450; J1644; J1650; J1940; J1956; J2250; J2405; J2543; J2704; J2920; J2930; J3010; J3370; J7030; J7050; J7060; J8540; P9016; Q9967